=== PATIENT | female | born 2000 | race Hispanic/Latino ===

== ENCOUNTER 2024-11-25 17:30 | Emergency (ER) | payer OTHER ==
[~2024-11-25] VITALS: Ht 167.6 cm; Wt 61.2 kg
[2024-11-25 18:09] LABS: BASOPHILS % 0.4 % (0.0-1.0); HEMATOCRIT 34.7 % (34.2-44.1); LYMPHOCYTES # (AUTO) 2.1 (1.0-3.2); LYMPHOCYTES % 20.1 % (18.0-39.1); MEAN CORPUSCULAR HEMOGLOBIN 29.5 pg (28-32); MEAN CORPUSCULAR HGB CONC 34.6 g/dL (31-35); MEAN CORPUSCULAR VOLUME 85.3 fL (81-99); MONOCYTES # (AUTO) 0.7 (0.2-0.8); MONOCYTES % 6.8 % (4.4-11.3); NEUTROPHILS # (AUTO) 7.6 (2.1-6.9); NEUTROPHILS % 72.4 % (38.7-80.0); PLATELET COUNT 303 x10e3/uL (140-360); RED BLOOD COUNT 4.07 x10e6/uL (3.6-5.1); WHITE BLOOD COUNT 10.53 x10e3/uL (4.8-10.8)
[2024-11-25 18:11] LABS: CLARITY,URINE SL CLOUDY (CLEAR); COLOR,URINE YELLOW (YELLOW); PH,URINE 7 (5 - 7); PREGNANCY TEST, URINE NEGATIVE (NEGATIVE)
[2024-11-25 18:12] LABS: BILIRUBIN,URINE MODERATE (NEGATIVE); GLUCOSE, URINE NEGATIVE (NEGATIVE); KETONES,URINE >=160 (NEGATIVE); LEUKOCYTE ESTERASE ,URINE MODERATE (NEGATIVE); NITRITE,URINE NEGATIVE (NEGATIVE); PROTEIN,URINE DIPSTICK >=300 (NEGATIVE); URINE UROBILINOGEN 2 mg/dL (0.2 - 1)
[2024-11-25 18:14] LABS: BACTERIA,URINE MANY /HPF; EPITHELIAL CELLS,URINE MANY /LPF; RBC,URINE 0-5 /HPF (0-5); WBC,URINE (MAN) >50 /HPF (0-5)
[2024-11-25] MEDS: BELLADONNA ALK/PHENOBARBITAL 5 ML UDC PO ONE (18:27)
[2024-11-25] MEDS: Morphine 4mg INJECTION 4 MG/ML INJ IV STA (18:27)
[2024-11-25] MEDS: SODIUM CHLORIDE 0.9% 1000ML 1,000 ML IV STA (18:27)
[2024-11-25] MEDS: ONDANSETRON HCL INJ 2MG/ML 2ML 2 MG/ML VIAL IV STA (18:28)
[2024-11-25] MEDS: MAGNESIUM/ALUMINUM/SIMETHICONE 30 ML UDC PO STA (18:28)
[2024-11-25] MEDS: LIDOCAINE VISC 2% SOLN 15 ML UDC PO STA (18:28)
[2024-11-25 18:31] LABS: ALBUMIN 4.6 g/dL (3.5-5.0); ALBUMIN/GLOBULIN RATIO 1.4 (0.8-2.0); ANION GAP 19.6 mmol/L (8-16); BILIRUBIN,TOTAL 0.8 mg/dL (0.2-1.2); CALCIUM 9.7 mg/dL (8.4-10.2); CREATININE, SERUM 0.79 mg/dL (0.57-1.11); POTASSIUM 3.6 mmol/L (3.5-5.1); TOTAL PROTEIN 7.8 g/dL (6.5-8.1)
[2024-11-25] MEDS ORDERED: IOPAMIDOL 370 MG/ML 100 ML INFUS..BTL INJ ONE (18:35)
[2024-11-25 19:55] LABS: AMPHETAMINES SCREEN,URINE NEGATIVE (NEGATIVE); BENZODIAZEPINES SCREEN,URINE NEGATIVE (NEGATIVE); CANNABINOIDS SCREEN,URINE POSITIVE (NEGATIVE); COCAINE SCREEN,URINE NEGATIVE (NEGATIVE); METHADONE SCREEN, URINE NEGATIVE (NEGATIVE); OPIATES SCREEN,URINE POSITIVE (NEGATIVE); PHENCYCLIDINE SCREEN,URINE NEGATIVE (NEGATIVE)
[2024-11-25] MEDS ORDERED: ONDANSETRON ODT4 MG PO (20:02)
[2024-11-25] MEDS ORDERED: PROTONIX20 MG PO (20:02)
[2024-11-25 20:43] VITALS: PULSE 61; RESP 18; TEMP 97.4; O2SAT 99
[2024-11-25] MEDS ORDERED: BACTRIM DS TAB1 EACH PO (20:43)
== END 2024-11-25 20:49 | disposition home or self-care (01) ==
LOC: ER 17:58
DX: R10.13 Epigastric pain (principal); N39.0 Urinary tract infection, site not specified; D64.9 Anemia, unspecified; N80.9 Endometriosis, unspecified; F17.210 Nicotine dependence, cigarettes, uncomplicated
CPT/HCPCS: 36415; 74177; 80053; 80307; 81001; 81025; 83690; 85025; 93005; 99284; J2270; J2405; J7030; Q9967

== ENCOUNTER 2025-04-04 13:34 | Emergency (ER) | payer OTHER ==
[~2025-04-04] VITALS: Ht 165.1 cm; Wt 63.5 kg
[~2025-04-04 13:34] MED LIST: BACTRIM DS TAB1 EACH PO; ONDANSETRON ODT4 MG PO; PROTONIX20 MG PO
[2025-04-04 14:23] LABS: BASOPHILS % 0.5 % (0.0-1.0); EOSINOPHILS % 0.0 % (0.0-6.0); LYMPHOCYTES % 14.0 % (18.0-39.1); MONOCYTES % 2.6 % (4.4-11.3); NEUTROPHILS % 82.6 % (38.7-80.0); RED CELL DISTRIBUTION WIDTH 14.4 % (11.7-14.4)
[2025-04-04 14:27] LABS: INR 1.01
[2025-04-04 14:36] LABS: EST GLOMERULAR FILTRATION RATE 115 ML/MIN (>=60)
[2025-04-04] MEDS: ONDANSETRON HCL INJ 2MG/ML 2ML 2 MG/ML VIAL IV STA (14:58)
[2025-04-04] MEDS: SODIUM CHLORIDE 0.9% 1000ML 1,000 ML IV STA ×2 (14:58)
[2025-04-04] MEDS ORDERED: IOPAMIDOL 370 MG/ML 100 ML INFUS..BTL INJ ONE (15:02)
[2025-04-04 16:25] LABS: LEUKOCYTE ESTERASE ,URINE NEGATIVE (NEGATIVE)
[2025-04-04 16:29] LABS: AMPHETAMINES SCREEN,URINE NEGATIVE (NEGATIVE); CANNABINOIDS SCREEN,URINE POSITIVE (NEGATIVE); COCAINE SCREEN,URINE NEGATIVE (NEGATIVE); METHADONE SCREEN, URINE NEGATIVE (NEGATIVE); OPIATES SCREEN,URINE NEGATIVE (NEGATIVE); PROTEIN,URINE DIPSTICK NEGATIVE (NEGATIVE)
[2025-04-04] MEDS: Morphine 4mg INJECTION 4 MG/ML INJ IV STA (16:29)
[2025-04-04] MEDS: PROMETHAZINE 12.5MG/ NACL 0.9% 12.5 MG/50 ML BAG IV ONE (16:29)
[2025-04-04 16:30] LABS: URINE UROBILINOGEN 0.2 mg/dL (0.2 - 1)
[2025-04-04] MEDS: KETOROLAC TROMETHAMINE 30 MG/ML VIAL IV STA (16:30)
[2025-04-04 16:38] LABS: EPITHELIAL CELLS,URINE FEW /LPF; WBC,URINE (MAN) 0-5 /HPF (0-5)
[2025-04-04] MEDS ORDERED: ONDANSETRON ODT4 MG PO (17:07)
[2025-04-04] MEDS ORDERED: KETOROLAC TROME10 MG PO (17:07)
[2025-04-04] MEDS ORDERED: PROMETHAZINE12.5 MG PR (17:07)
[2025-04-04 17:30] VITALS: PULSE 74; RESP 16; TEMP 98.4; O2SAT 100
== END 2025-04-04 17:32 | disposition home or self-care (01) ==
LOC: ER 14:11
DX: R11.2 Nausea with vomiting, unspecified (principal); N83.202 Unspecified ovarian cyst, left side; R10.30 Lower abdominal pain, unspecified; N80.9 Endometriosis, unspecified; R94.31 Abnormal electrocardiogram [ECG] [EKG]; Z87.19 Personal history of other diseases of the digestive system; F17.210 Nicotine dependence, cigarettes, uncomplicated
CPT/HCPCS: 36415; 71045; 74177; 80053; 80307; 81001; 83690; 83735; 84484; 84702; 85025; 85610; 85730; 87086; 93005; 99284; J1885; J2270; J2405; J2470; J2550; J7030; Q9967

== ENCOUNTER 2025-06-11 15:41 | Emergency (ER) | payer OTHER ==
[~2025-06-11] VITALS: Ht 165.1 cm; Wt 63.5 kg
[~2025-06-11 15:41] MED LIST changes: +KETOROLAC TROME10 MG PO; +PROMETHAZINE12.5 MG PR
[2025-06-11 16:18] LABS: BASOPHILS % 0.2 % (0.0-1.0); EOSINOPHILS % 0.0 % (0.0-6.0); LYMPHOCYTES % 7.0 % (18.0-39.1); MONOCYTES % 2.1 % (4.4-11.3); NEUTROPHILS % 90.3 % (38.7-80.0); RED CELL DISTRIBUTION WIDTH 13.2 % (11.7-14.4)
[2025-06-11 16:22] LABS: INR 0.99
[2025-06-11] MEDS: SODIUM CHLORIDE 0.9% 1000ML 1,000 ML IV STA ×2 (16:32→16:33)
[2025-06-11 16:33] LABS: EST GLOMERULAR FILTRATION RATE 128 ML/MIN (>=60)
[2025-06-11] MEDS: DICYCLOMINE HCL 20 MG/2 ML VIAL IM ONE (16:33)
[2025-06-11] MEDS: ONDANSETRON HCL INJ 2MG/ML 2ML 2 MG/ML VIAL IV STA (16:33)
[2025-06-11] MEDS ORDERED: IOPAMIDOL 370 MG/ML 100 ML INFUS..BTL INJ ONE (16:39)
[2025-06-11 18:14] LABS: AMPHETAMINES SCREEN,URINE NEGATIVE (NEGATIVE); CANNABINOIDS SCREEN,URINE NEGATIVE (NEGATIVE); COCAINE SCREEN,URINE NEGATIVE (NEGATIVE); LEUKOCYTE ESTERASE ,URINE NEGATIVE (NEGATIVE); METHADONE SCREEN, URINE NEGATIVE (NEGATIVE); OPIATES SCREEN,URINE POSITIVE (NEGATIVE); PROTEIN,URINE DIPSTICK NEGATIVE (NEGATIVE)
[2025-06-11 18:15] LABS: EPITHELIAL CELLS,URINE FEW /LPF; URINE UROBILINOGEN 0.2 mg/dL (0.2 - 1); WBC,URINE (MAN) 0-5 /HPF (0-5)
[2025-06-11] MEDS: KETOROLAC TROMETHAMINE 30 MG/ML VIAL IV STA (19:35)
[2025-06-11] MEDS: DIPHENHYDRAMINE HCL INJ 50 MG/ML VIAL IV ONE (19:35)
[2025-06-11] MEDS: METOCLOPRAMIDE HCL 10 MG/2ML VIAL IV ONE (19:35)
[2025-06-11] MEDS ORDERED: ONDANSETRON ODT4 MG PO (21:49)
[2025-06-11 22:34] VITALS: PULSE 63; RESP 18; TEMP 98.4; O2SAT 99
== END 2025-06-11 22:41 | disposition home or self-care (01) ==
LOC: ER 16:03
DX: R11.2 Nausea with vomiting, unspecified (principal); N83.202 Unspecified ovarian cyst, left side; R19.7 Diarrhea, unspecified; R10.20 Pelvic and perineal pain unspecified side
CPT/HCPCS: 36415; 71045; 74177; 76856; 80053; 80307; 81001; 83690; 83735; 84702; 85025; 85610; 85730; 93976; 99284; J0500; J1200; J1885; J2405; J2470; J2765; J7030; Q9967